=== PATIENT | female | born 1955 | race Caucasian/White ===

== ENCOUNTER → 2018-06-17 14:09 | Outpatient (CLI) | payer OTHER, SELFPAY ==
--- NOTE | 2018-06-17 | DI.US.S_ITS ---
ULTRASOUND OF LEFT BREAST: 06/17/2018 CLINICAL: Palpable left breast lump by physician. Comparison is made to exams dated: 06/17/2018 mammogram - [facility], 08/06/2017 mammogram, and 11/01/2015 mammogram - [facility]. Color flow ultrasound of the left breast was performed. [place] scale images of the real-time examination were reviewed. There is no correlate for the left breast clinical area of concern or the left breast distortion. IMPRESSION: INCOMPLETE: NEEDS ADDITIONAL IMAGING EVALUATION - FOLLOW-UP RECOMMENDED There is no abnormality seen in the left breast to correspond with the area of clinical concern, however, clinical followup is recommended. There is no abnormality seen in the left breast to correspond with the mammography finding, however, breast MRI is recommended. Findings and recommendations discussed in person with the patient by Dr. Kent of the department of radiology. This exam was interpreted at Station ID: [id number]. Electronically Signed By: Dequan Alfaro M.D. cj/:06/18/2018 07:55:15 Entry: - 06/18/2018 07:55:15 letter sent: Need MRI Ultrasound BI-RADS: 0 Indeterminate
--- NOTE | 2018-06-17 | DI.MG.S_ITS ---
BILATERAL DIGITAL DIAGNOSTIC MAMMOGRAM 3D/2D: 06/17/2018 CLINICAL: Left breast lump. Comparison is made to exams dated: 08/06/2017 mammogram and 11/01/2015 mammogram - [facility]. The tissue of both breasts is predominantly fatty. There is architectural distortion in the left breast at 11 o'clock middle depth. No other significant masses, calcifications, or other findings are seen in either breast. IMPRESSION: INCOMPLETE: NEEDS ADDITIONAL IMAGING EVALUATION The architectural distortion in the left breast is indeterminate. An ultrasound is recommended. There is no abnormality seen in the left breast to correspond with the area of clinical concern, however, ultrasound is recommended. This exam was interpreted at Station ID: [id number]. NOTE: For mammograms, a report in lay terms will be sent to the patient. Approximately 15% of breast malignancies will not be visualized mammographically. In the management of a palpable breast mass, a negative mammogram must not discourage biopsy of a clinically suspicious lesion. Electronically Signed By: Dequan lópez/ruba:06/17/2018 16:21:53 ACR BI-RADS Category 0: Incomplete 3340F
== END ==
PROVIDERS: Visit Provider Physician Assistant Medical
DX: R92.8 Other abnormal and inconclusive findings on diagnostic imaging of breast (principal); N63.22 Unspecified lump in the left breast, upper inner quadrant
CPT/HCPCS: 76642; 77066; G0279

== ENCOUNTER → 2020-01-11 11:53 | Outpatient (CLI) | payer OTHER, SELFPAY ==
--- NOTE | 2020-01-11 | DI.MG.S_ITS ---
BILATERAL DIGITAL SCREENING MAMMOGRAM 3D/2D WITH CAD: 01/11/2020 CLINICAL: Routine screening. Comparison is made to exams dated: 06/17/2018 mammogram - [facility], 08/06/2017 mammogram, and 11/01/2015 mammogram - [facility]. The tissue of both breasts is heterogeneously dense. This may lower the sensitivity of mammography. Current study was also evaluated with a Computer Aided Detection (CAD) system. There are benign post operative findings in the left breast. No significant masses, calcifications, or other findings are seen in either breast. There has been no significant interval change. IMPRESSION: There is no mammographic evidence of malignancy. A 1 year screening mammogram is recommended. This exam was interpreted at Station ID: [id number]. NOTE: For mammograms, a report in lay terms will be sent to the patient. Approximately 15% of breast malignancies will not be visualized mammographically. In the management of a palpable breast mass, a negative mammogram must not discourage biopsy of a clinically suspicious lesion. Electronically Signed By: Ninoska huerta/ruba:01/11/2020 23:03:23 letter sent: Normal Exam ACR BI-RADS Category 2: Benign Finding(s) 3342F
== END ==
PROVIDERS: PCP Internal Medicine; Referring Provider Internal Medicine; Visit Provider Internal Medicine
DX: Z12.31 Encounter for screening mammogram for malignant neoplasm of breast (principal)
CPT/HCPCS: 77063; 77067

== ENCOUNTER → 2021-03-23 10:20 | Outpatient (CLI) | payer OTHER, SELFPAY ==
--- NOTE | 2021-03-23 | DI.MG.S_ITS ---
BILATERAL DIGITAL SCREENING MAMMOGRAM 3D/2D WITH CAD: 03/23/2021 CLINICAL: Routine screening. Comparison is made to exams dated: 01/11/2020 mammogram, 06/17/2018 mammogram - [facility], and 08/06/2017 mammogram - [facility]. The tissue of both breasts is heterogeneously dense. This may lower the sensitivity of mammography. Current study was also evaluated with a Computer Aided Detection (CAD) system. There are benign calcifications in both breasts. There also are benign post operative findings in the left breast. No significant masses, calcifications, or other findings are seen in either breast. There has been no significant interval change. IMPRESSION: BENIGN There is no mammographic evidence of malignancy. A 1 year screening mammogram is recommended. This exam was interpreted at Station ID: [id number]. NOTE: For mammograms, a report in lay terms will be sent to the patient. Approximately 15% of breast malignancies will not be visualized mammographically. In the management of a palpable breast mass, a negative mammogram must not discourage biopsy of a clinically suspicious lesion. Electronically Signed By: Jose milton/ruba:03/23/2021 10:40:18 letter sent: Normal Exam ACR BI-RADS Category 2: Benign Finding(s) 3342F
== END ==
PROVIDERS: PCP Internal Medicine; Referring Provider Internal Medicine; Visit Provider Internal Medicine
DX: Z12.31 Encounter for screening mammogram for malignant neoplasm of breast (principal)
CPT/HCPCS: 77063; 77067